=== PATIENT | male | born 1970 | race African-American/Black ===

== ENCOUNTER 2021-08-23 13:36 | Emergency (ER) | payer SELFPAY ==
[~2021-08-23] VITALS: Ht 195.6 cm; Wt 122.5 kg
[2021-08-23 14:19] VITALS: BP 128/81
[2021-08-23] MEDS ORDERED: CIPR7.5D9 RIGHT EAR (14:52)
== END 2021-08-23 15:09 | disposition home or self-care (01) ==
LOC: ER 13:44
DX: H60.91 Unspecified otitis externa, right ear (principal)

== ENCOUNTER 2022-06-26 15:18 | Emergency (ER) | payer SELFPAY ==
[~2022-06-26 15:18] MED LIST: CIPR7.5D9 RIGHT EAR
--- NOTE | 2022-06-26 15:30 | NUR ---
CALLED TO TRIAGE NO ANSWER
--- NOTE | 2022-06-26 15:50 | NUR ---
CALLED TO TRIAGE,NO ANSWER
--- NOTE | 2022-06-26 16:09 | NUR ---
CALLED TO TRIAGE,NO ANSWER
== END 2022-06-26 16:10 | disposition left against medical advice (07) ==
LOC: ER 15:19
DX: Z53.21 Procedure and treatment not carried out due to patient leaving prior to being seen by health care provider (principal)